=== PATIENT | female | born 1975 | race Caucasian/White ===

== ENCOUNTER → 2023-12-30 12:41 | Outpatient (REF) | payer OTHER, SELFPAY | LOC: RAD 12:41 | PROVIDERS: ATTENDING PHYSICIAN Anesthesiology; FAMILY PHYSICIAN Family Medicine | DX: M54.12 Radiculopathy, cervical region (principal) | CPT/HCPCS: 72050 ==

== ENCOUNTER 2024-08-02 20:32 | Emergency (ER) | payer OTHER, SELFPAY ==
[2024-08-02 20:35] VITALS: BP 128/79
[2024-08-02 21:00] LABS: % Basophils 0.2 % (0-2); % Eosinophils 0.5 % (0-6); % Immature Granulocytes 0.5 % (0-0.5); % Lymphocytes 9.2 % (20.5-51.1); % Monocytes 2.6 % (1.7-9.3); Absolute Eosinophils 0.1 10^3/uL (0-0.7); Absolute Immature Granulocytes 0.1 10^3/uL (0-0.05); Absolute Monocytes 0.3 10^3/uL (0.1-0.6); Absolute Neutrophils 9.1 10^3/uL (1.4-6.5); Hematocrit 40.7 % (37.0-47.0); Hemoglobin 13.8 g/dL (12.0-16.0); Mean Corp Hgb Conc. 33.9 g/dL (33.0-37.0); Mean Corpuscular Hgb 30.3 pg (27.0-31.0); Mean Corpuscular Volume 89.5 fL (81.0-99.0); Mean Platelet Volume 9.2 fL (7.4-10.4); Nucleated Red Blood Cells % 0 %; Platelet Count 256 10^3/uL (130-400); Red Blood Cell Count 4.55 10^6/uL (4.20-5.40); Red Cell Dist. Width 13.1 % (11.5-14.5); White Blood Cell Count 10.5 10^3/uL (4.8-10.8)
[2024-08-02 21:10] LABS: Lactic Acid 1.6 mmol/L (0.7-2.0)
[2024-08-02 21:23] LABS: ALT (SGPT) 19 U/L (0-35); AST (SGOT) 28 U/L (14-36); Albumin 4.5 g/dl (3.5-5.0); Alkaline Phosphatase 98 U/L (38-126); Blood Urea Nitrogen 11 mg/dl (7-17); Calcium 9.5 mg/dl (8.4-10.2); Carbon Dioxide 25 mmol/L (22-30); Chloride 101 mmol/L (98-107); Glucose 108 mg/dl (70-99); Potassium 3.3 mmol/L (3.5-5.1); Sodium 135 mmol/L (135-145); Total Bilirubin 0.6 mg/dl (0.2-1.3); Total Protein 7.1 g/dl (6.3-8.2); eGFR > 60.00
[2024-08-02 23:07] VITALS: BP 115/38
--- NOTE | 2024-08-02 23:21 | ED.GENMED ---
History of Present Illness
General
Chief Complaint: Fever
Source: patient, previous radiology exam and previous hospital records (Outpatient pulmonary evaluation August 2019 patient underwent bronchoscopy for interstitial lung disease/bronchiectasis)
Exam Limitations: none
Time Seen by Provider: 08/02/24 23:04
Nursing documentation reviewed up to this point in time: agreed with
History of Present Illness
History of Present Illness:
This is a 49-year-old woman with history of ulcerative colitis status post colectomy 2017. Has been off of immunosuppressants for several years.
She has history of asthma, previous evaluation August 2019 for interstitial lung disease/bronchiectasis after suffering protracted illness with pneumonia and undergoing bronchoscopy 2019 that was unremarkable.
Pulmonary status has been stable with no recurrent flare of asthma/pneumonia since 2019.
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 Hematology evaluation at that time negative for hypercoagulable condition.
More recently over the past week patient has noted some nasal/sinus congestion with generalized fatigue, poor oral intake over the past week for solids but has been drinking fluids well. She has had no vomiting, no abdominal pain, no diarrhea or
constipation.
This evening she developed generalized chills, aches and developed a fever with Tmax of 103 �F. Evaluated at urgent care where she states COVID and influenza testing were negative. She was given ibuprofen for fever and sent to the ED for further
evaluation due to tachycardia.
She denies cough, denies sore throat. She does note moderate fatigue and generalized aches.
She states her currently being treated for an ear infection.
No recent travel nor recent antibiotic use.
She is a non-smoker.
Prior history of hysterectomy.
She has history of chronic low back pain, maintained on Percocet as per pain management.
She takes no other medications on a daily basis.
Past History
Past History
ED Past Medical History: Asthma and Other (Ulcerative colitis, Vertigo, chronic low back pain-takes Percocet intermittently at bedtime for back pain); Negative HTN, Hypercholesterolemia or NIDDM
ED Past Surgical History: Bowel resection ( Colon resection for Ulcerative colitis with J pouch, 2018), Gynecological (Breast augmentation, hysterectomy) and Other (Williams teeth)
Social History
Tobacco: Former smoker
Alcohol: Occasional
Personal:
Living: with family
Employment: Employed
Family History
Family History: Other (Noncontributory)
Phy Exam
Physical Exam
Physical Exam:
GENERAL: 49-year-old woman appears her stated age, awake and alert, mildly ill in appearance, appears somewhat fatigued but easily communicative. Moderate nasal, stuffy voice is noted. Currently afebrile.
EYE: pupils equal and reactive. anicteric
NECK: Supple, nontender, no meningismus, no significant adenopathy.
ENT: posterior pharynx is clear, oral mucosa is moist. TM clear b/l, nares have mildly boggy turbinates with scant dried/crusted mucus within nares
CARDIAC: Regular rhythm, mildly tachycardic at 90-110. no murmur.
LUNGS: Clear breath sounds bilaterally, no acute respiratory distress, no wheezes/rales/rhonchi
ABDOMEN: Soft, nondistended, without focal tenderness, no r/g, no cvat. normoactive BS.
NEUROLOGICAL: Alert and oriented x3, no focal neuro deficits.
SKIN: Warm and dry, normal color, skin intact. No rash.
MUSCULOSKELETAL: No C/C/E. peripheral pulses are full and equal b/l. No palpable tenderness.
PSYCH: Normal and appropriate interaction.
Course
Orders/Labs/Results
Orders:
Orders
08/02/24 20:34
EKG [Electrocardiogram (*1)] Urgent
Reason for Study: Tachycardia
EKG- Treatment ONCE
08/02/24 20:41
CR Chest - 2 Views Urgent
Comment:
Reason For Exam: low oxygen level
08/02/24 20:46
Complete Blood Count/With Diff Urgent
Comprehensive Metabolic Panel Urgent
Lactic Acid Urgent
08/02/24 23:19
0.9% Sodium Chloride 1000 ml [Nss] 1,000 ml IV BOLUS
Potassium Chloride [KCl] 20 meq PO NOW STA
08/03/24 00:30
CT Chest PE Study Urgent
Reason For Exam: tachycardia, SOB, fever. hx PE 2017
Abnormal Lab Results
08/02/24
20:46
Abs Immat Gran (auto) 0.1 H 10^3/uL
(0-0.05)
Absolute Neuts (auto) 9.1 H 10^3/uL
(1.4-6.5)
Absolute Lymphs (auto) 1.0 L 10^3/uL
(1.2-3.4)
Neutrophils % 87.0 H %
(42.2-75.2)
Lymphocytes % 9.2 L %
(20.5-51.1)
Potassium 3.3 L mmol/L
(3.5-5.1)
Glucose 108 H mg/dl
(70-99)
08/02/24 20:46
08/02/24 20:46
Vital Signs
Initial and Last Documented VS:
Initial Vital Signs
Temp Pulse Resp BP Pulse Ox
99.5 F 139 20 128/79 95
08/02/24 20:35 08/02/24 20:35 08/02/24 20:35 08/02/24 20:35 08/02/24 20:35
Last Documented Vital Signs
Temp Pulse Resp BP Pulse Ox
99.5 F 110 26 121/29 100
08/02/24 20:35 08/03/24 00:00 08/03/24 00:00 08/03/24 00:00 08/03/24 00:00
MDM/Problems Addressed
Differential Diagnosis Includes:
Concern for acute sinusitis, viral URI, other consideration is acute bacterial sinusitis.
I suspect tachycardia is related to acute febrile illness. Tachycardia has improved with improvement in fever however she does continue with mild sinus tachycardia and with prior history of PE this is certainly a consideration.
COVID and influenza testing reportedly negative at urgent care.
Labs thus far are unremarkable save for mild hypokalemia at 3.3. Will replete potassium orally.
White blood cell count is normal at 10.5 with mild left shift. Lactic acid is normal.
Will check CT of the chest/PE study.
Chronic conditions affecting care: Asthma and Other (Prior history of PE 2017)
*Radiology
Radiology exam reviewed: radiology read reviewed (CT shows no evidence of PE. There is a right lower lobe retrocardiac opacity suspicious for pneumonia. There is also note of mild height loss/endplate deformities of the T6, T10 and T12 vertebral
bodies concerning for mild compression fractures.)
*Pulse Oximetry
Patient hypoxic: no
*EKG
Interpreted by ED Provider?: Yes
Interpretation: abnormal
Comparison EKG: changes noted (Sinus tachycardia and rightward axis are new compared to previous EKG 2008)
Rate: tachycardiac
Rhythm: sinus
[place]: right axis deviation
Interval: normal interval
QRS Pattern: normal QRS
Ischemia: no ischemia
*Polishing Machine Operator Helper Interpretation
Rate: tachycardiac
Interpretation: abnormal
Rhythm: sinus
*Critical Care Note
Total Time (30-74mins, 75-104mins- exclusive of procedures): Not Applicable
Update Note
Update Note:
01:10
Patient feeling improved after IV fluids.
Sleeps when undisturbed, easily arousable. Respirations are easy and nonlabored. Low-grade fever noted 99.3 �F.
Tachycardia has resolved.
CAT scan shows no evidence of PE but does show a right lower lobe retrocardiac opacity suspicious for pneumonia.
Will initiate a course of Zithromax for community-acquired pneumonia.
There is also note of mild compression fractures T6, T10, T12 that are new compared to previous CAT scan July 2019. Patient does have history of chronic low back pain, follows with pain management maintained on Percocet. Currently denies mid to
upper back pain and has had no recent falls. I suspect these thoracic spine findings are incidental.
Will give a dose of Tylenol now for fever.
Discussed importance of remaining well-hydrated on a daily basis.
Prompt follow-up with PCP for recheck.
ED Attending Note
-
Portions of this chart may have been created with voice recognition software.� Occasional wrong word or��sound alike� substitutions may have occurred due to the inherent limitations of voice recognition software.
Discharge Plan
Departure
Patient Disposition: Home (Routine Discharge)
Date of Disposition: 08/03/24
Time of Disposition: :09
Patient with high blood pressure during this ER visit?: No
Condition: Good
Discharge Problem:
Community acquired pneumonia, Acute sinusitis, Acute febrile illness
Instructions: Sinusitis in adults, Community-acquired pneumonia in adults, Fever, Adult (DC)
Prescriptions:
New
azithromycin [Zithromax] 250 mg tablet
250 mg PO DAILY Qty: 6 0RF
Rx Instructions:
500 mg day 1, 250 mg day 2-5
No Action
montelukast 10 MG tablet
10 mg PO DAILY
citalopram 20 MG tablet
20 mg PO DAILY
multivitamin with folic acid [Tab-A-Ashlie] 1 TABLET tablet
1 tab PO DAILY
mirtazapine 30 MG tablet
30 mg PO HS
cholecalciferol (vitamin D3) [Vitamin D3] 2,000 UNIT capsule
4,000 unit PO DAILY
loperamide 2 MG capsule
2 mg PO QID 0RF
ibuprofen 600 MG tablet
600 mg PO Q6HPRN PRN (Reason: mild pain and edema) 0RF
Rx Instructions:
Not take more than 7 Days in total
guaifenesin [Mucus Relief ER] 600 MG tablet extended release 12hr
600 mg PO Q12 0RF
cefdinir [Omnicef] 300 MG capsule
300 mg PO BID Qty: 14 0RF
azithromycin 250 MG tablet
250 mg PO DAILY Qty: 7 0RF
ipratropium-albuterol 3 ML solution for nebulization
3 ml inhalation Q8HPRN PRN (Reason: Shortness of breath) Qty: 90 0RF
amoxicillin-pot clavulanate 875-125 mg tablet
1 tab PO BID Qty: 20 0RF
Referrals:
Jaleel Ness DO [Family Provider] - Call in 1-3 days for appt
Interventions
Interventions:
*Risk Screen - Suicide Last Done: 08/02/24 23:46
*General Assessment Last Done: 08/02/24 20:35
*Neglect/Abuse Screening Last Done: 08/02/24 23:46
ED- Fall Risk Assessment Last Done: 08/02/24 23:46
*ED COVID-19 Vaccine History Last Done: 08/02/24 23:46
ED- Neurological Assessment Last Done: 08/02/24 23:46
ED-Skin Assessment Last Done: 08/02/24 23:46
Discharge Date and Time
Print Language: MALAY
[2024-08-02 23:46] VITALS: BMI 22.1
[2024-08-02] MEDS: KCL 20 MEQ PO (23:54)
[2024-08-02] MEDS: NSS 1000 IV (23:55)
[2024-08-03] VITALS: BP 121/29
[2024-08-03] MEDS: TYLENOL 1000 MG PO (01:27)
[2024-08-03] MEDS: ZITHROMAX 500 MG PO (01:28)
[2024-08-03 01:32] VITALS: BP 122/56
== END 2024-08-03 01:54 | disposition home or self-care (01) ==
LOC: EMR 20:32
PROVIDERS: Student in an Organized Health Care Education/Training Program; EMERGENCY PHYSICIAN Emergency Medicine; FAMILY PHYSICIAN Family Medicine
DX: J18.9 Pneumonia, unspecified organism (principal); J01.90 Acute sinusitis, unspecified; J45.909 Unspecified asthma, uncomplicated; J98.4 Other disorders of lung; K51.90 Ulcerative colitis, unspecified, without complications; Z79.891 Long term (current) use of opiate analgesic; Z86.711 Personal history of pulmonary embolism; Z90.49 Acquired absence of other specified parts of digestive tract; Z90.710 Acquired absence of both cervix and uterus
CPT/HCPCS: 99284; 71046; 71275; 80053; 83605; 85025; 93005; Q9967